=== PATIENT | male | born 1940 | race Caucasian/White ===

== ENCOUNTER 2021-12-20 20:14 | Inpatient (IN) | payer OTHER ==
[~2021-12-20] VITALS: Ht 180.3 cm; Wt 77.1 kg
[2021-12-20] MEDS ORDERED: ONDANSETRON HCL 4MG/2ML INJ IV STA (21:48)
[2021-12-20] MEDS ORDERED: MORPHINE SULFATE 4 MG/ML CPJ (NOT FOR IM USE) IV STA (21:48)
[2021-12-20] MEDS ORDERED: SODIUM CHLORIDE 0.9% 1,000 ML IV ONE (22:00)
[2021-12-20 22:47] LABS: BASOPHILS % 0.6 % (0.0-2.0); HEMOGLOBIN. 11.4 g/dL (14.0-18.0); LYMPHOCYTES % 7.6 % (20.0-50.0); MEAN CORPUSCULAR HEMOGLOBIN 31.3 pg (28.0-32.0); MEAN CORPUSCULAR VOLUME 93.3 fL (80.0-94.0); MEAN PLATELET VOLUME 7.9 fl (7.4-10.4); MONOCYTES % 4.5 % (2.0-8.0); NEUTROPHILS % 87.3 % (40.0-76.0); PLATELET 261 x1000/uL (130-400); RED BLOOD CELL COUNT 3.65 mill/uL (4.7-6.1); RED CELL DISTRIBUTION WIDTH 14.2 % (11.6-14.6)
[2021-12-20 22:56] LABS: INR 1.1; PROTHROMBIN TIME 11.6 sec (9.6-11.0)
[2021-12-20 22:57] LABS: CHLORIDE 105 mEq/L (98-107)
[2021-12-20 23:54] LABS: CLARITY URINE CLEAR (CLEAR); COLOR URINE YELLOW (YELLOW); KETONES URINE NEGATIVE (NEGATIVE); LEUKOCYTE ESTERASE URINE NEGATIVE (NEGATIVE); NITRITE URINE NEGATIVE (NEGATIVE); OCCULT BLOOD URINE NEGATIVE (NEGATIVE); PH URINE 6.5 (4.5-8.0); PROTEIN URINE TRACE (NEGATIVE)
[2021-12-21] MEDS ORDERED: MAGNESIUM/ALUMINUM HYDROXIDE/SIMETHICONE 30ML UDC PO PRN (04:30)
[2021-12-21] MEDS ORDERED: DOCUSATE SODIUM 100MG CAPSULE PO PRN (04:30)
[2021-12-21] MEDS ORDERED: CLONIDINE 0.1MG TABLET PO PRN (04:30)
[2021-12-21] MEDS ORDERED: TRAMADOL 50MG TABLET PO PRN (04:30)
[2021-12-21] MEDS ORDERED: ONDANSETRON HCL 4MG/2ML INJ IV PRN (04:30)
[2021-12-21] MEDS ORDERED: HYDROMORPHONE HCL/PF 2MG/ML CPJ IV PRN (04:30)
[2021-12-21] MEDS ORDERED: ACETAMINOPHEN 325MG TABLET PO PRN (04:30)
[2021-12-21] MEDS ORDERED: GUAIFENESIN 200MG/10ML SUGAR FREE UDC PO PRN (04:30)
[2021-12-21] MEDS ORDERED: TRANEXAMIC ACID 1,000 MG in SODIUM CHLORIDE 0.9% 100 ML IV NR ×4 (09:15)
[2021-12-21] MEDS ORDERED: VANCOMYCIN HCL 1 GM/VIAL ONE (09:38)
[2021-12-21] MEDS ORDERED: POLYMYXIN B SULFATE 500000 UNITS/VIAL ONE (09:38)
[2021-12-21] MEDS ORDERED: EPINEPHRINE 1:1000 1 MG/ML AMP ONE (09:41)
[2021-12-21] MEDS ORDERED: KETOROLAC 30MG/ML VIAL ONE (09:41)
[2021-12-21] MEDS ORDERED: ROPIVACAINE HCL 10MG/ML 20 ML VIAL EPI ONE (09:41)
[2021-12-21] MEDS: ENOXAPARIN 40MG/0.4ML SYR SUBCUT SCH (10:31)
[2021-12-21] MEDS ORDERED: NALOXONE HCL 0.4MG/ML VIAL IV PRN (10:45)
[2021-12-21] MEDS ORDERED: POTASSIUM CHLORIDE 20MEQ TABLET SR PO NR (13:00)
[2021-12-21] MEDS ORDERED: REGADENOSON 0.4 MG/5 ML IV NR (16:15)
[2021-12-21] MEDS: HYDROCODONE/APAP 7.5/325MG 1 TAB TABLET PO PRN (17:43)
[2021-12-21 19:07] VITALS: BP 111/89
[2021-12-21 20:00] VITALS: BP 114/58
[2021-12-21 22:33] LABS: TOTAL IRON BINDING CAPACITY 261 ug/dL (250-450)
[2021-12-21 22:52] LABS: FOLIC ACID (FOLATE) SERUM 15.6 ng/mL (>5.38)
[2021-12-22] VITALS: BP 103/57
[2021-12-22 04:00] VITALS: BP 102/53
[2021-12-22] MEDS: HYDROCODONE/APAP 7.5/325MG 1 TAB TABLET PO PRN (04:20)
[2021-12-22 07:42] LABS: BASOPHILS % 0.8 % (0.0-2.0); EOSINOPHILS % 1.6 % (0.0-5.0); HEMATOCRIT. 32.6 % (42.0-52.0); HEMOGLOBIN. 11.1 g/dL (14.0-18.0); LYMPHOCYTES % 7.8 % (20.0-50.0); MEAN CORPUSCULAR HEMOGLOBIN 31.5 pg (28.0-32.0); MEAN CORPUSCULAR VOLUME 92.7 fL (80.0-94.0); MEAN PLATELET VOLUME 8.8 fl (7.4-10.4); MONOCYTES % 6.5 % (2.0-8.0); NEUTROPHILS % 83.3 % (40.0-76.0); PLATELET 229 x1000/uL (130-400); RED BLOOD CELL COUNT 3.52 mill/uL (4.7-6.1); RED CELL DISTRIBUTION WIDTH 13.9 % (11.6-14.6)
[2021-12-22 07:47] LABS: CHLORIDE 106 mEq/L (98-107)
[2021-12-22 07:57] LABS: HDL CHOLESTEROL 53 mg/dL (40-59); LDL CHOLESTEROL 122 mg/dL (5-100)
[2021-12-22] MEDS: ENOXAPARIN 40MG/0.4ML SYR SUBCUT SCH (09:00)
[2021-12-22] MEDS ORDERED: ASPIRIN 81MG TABLET PO SCH (09:00)
[2021-12-22] MEDS ORDERED: CEFTRIAXONE 1 G PREMIX 50 ML IV SCH (11:00)
[2021-12-22] MEDS ORDERED: LIDOCAINE HCL/PF 2% 20MG/ML 5 ML/VIAL ONE (11:47)
[2021-12-22] MEDS ORDERED: HEPARIN 1000 UNITS/ML 10ML ONE (11:48)
[2021-12-22] MEDS ORDERED: VERAPAMIL HCL 2.5 MG/1 ML 2ML VIAL IV ONE (11:48)
[2021-12-22] MEDS ORDERED: IODIXANOL 320MG/ML 100 ML BOTTLE IV ONE (11:48)
[2021-12-22] MEDS ORDERED: DIPHENHYDRAMINE 50MG/ML VIAL ONE (11:48)
[2021-12-22] MEDS ORDERED: MIDAZOLAM HCL 2 MG/2 ML VIAL ONE (11:49)
[2021-12-22] MEDS ORDERED: FENTANYL CITRATE/PF 50MCG/ML 2ML VIAL ONE (11:49)
[2021-12-22] MEDS: CEFTRIAXONE 1,000 MG in DEXTROSE 5% WATER 50 ML IV SCH (12:00)
[2021-12-22] MEDS ORDERED: LORAZEPAM 1MG TABLET PO PRN (12:30)
[2021-12-22] MEDS ORDERED: LIDOCAINE HCL 1% 50ML VIAL (10MG/ML) ONE (13:04)
[2021-12-22] MEDS ORDERED: SODIUM CHLORIDE 0.45% 250 ML IV SCH (15:15)
[2021-12-22] MEDS ORDERED: ATROPINE SULFATE 1MG/10ML SYR IV PRN (15:15)
[2021-12-22] MEDS ORDERED: ACETAMINOPHEN 325MG TABLET PO PRN (15:15)
[2021-12-22 20:00] VITALS: BP 139/61
[2021-12-22] MEDS: ATORVASTATIN CALCIUM 40MG TABLET PO SCH (21:29)
[2021-12-23 00:53] VITALS: BP 98/78
[2021-12-23] MEDS: HYDROCODONE/APAP 7.5/325MG 1 TAB TABLET PO PRN (03:31)
[2021-12-23 04:00] VITALS: BP 101/78
[2021-12-23 06:48] LABS: BASOPHILS % 0.5 % (0.0-2.0); EOSINOPHILS % 1.6 % (0.0-5.0); HEMATOCRIT. 33.3 % (42.0-52.0); HEMOGLOBIN. 11.4 g/dL (14.0-18.0); LYMPHOCYTES % 8.6 % (20.0-50.0); MEAN CORPUSCULAR HEMOGLOBIN 31.5 pg (28.0-32.0); MEAN CORPUSCULAR VOLUME 92.2 fL (80.0-94.0); MEAN PLATELET VOLUME 8.5 fl (7.4-10.4); MONOCYTES % 8.8 % (2.0-8.0); NEUTROPHILS % 80.5 % (40.0-76.0); PLATELET 246 x1000/uL (130-400); RED BLOOD CELL COUNT 3.61 mill/uL (4.7-6.1); RED CELL DISTRIBUTION WIDTH 13.7 % (11.6-14.6)
[2021-12-23 07:28] LABS: CHLORIDE 103 mEq/L (98-107)
[2021-12-23 08:00] VITALS: BP 113/65
[2021-12-23 12:00] VITALS: BP 98/54
[2021-12-23] MEDS: CEFTRIAXONE 1,000 MG in DEXTROSE 5% WATER 50 ML IV SCH (14:27)
[2021-12-23] MEDS ORDERED: ROPIVACAINE HCL 10MG/ML 20 ML VIAL EPI ONE (15:55)
[2021-12-23] MEDS ORDERED: VANCOMYCIN HCL 1 GM/VIAL ONE (15:55)
[2021-12-23] MEDS ORDERED: POLYMYXIN B SULFATE 500000 UNITS/VIAL ONE (15:55)
[2021-12-23] MEDS ORDERED: BACITRACIN 15GM TUBE TOP ONE (15:56)
[2021-12-23] MEDS ORDERED: BUPIVACAINE HCL 0.5% (5MG/ML) 50ML ONE (15:56)
[2021-12-23] MEDS ORDERED: MORPHINE SULFATE/PF 1MG/ML 10ML AMP ONE (15:56)
[2021-12-23] MEDS ORDERED: KETOROLAC 30MG/ML VIAL ONE (15:57)
[2021-12-23] MEDS ORDERED: EPINEPHRINE 1:1000 1 MG/ML AMP ONE (15:57)
[2021-12-23 16:00] VITALS: BP 109/65
[2021-12-23] MEDS ORDERED: TRANEXAMIC ACID 1,000 MG in SODIUM CHLORIDE 0.9% 100 ML IV NR ×4 (16:00)
[2021-12-23] MEDS ORDERED: ETOMIDATE 2MG/ML 10ML VIAL IV ONE (16:47)
[2021-12-23] MEDS ORDERED: FENTANYL CITRATE/PF 50MCG/ML 2ML VIAL ONE ×2 (17:22→17:42)
[2021-12-23] MEDS ORDERED: ONDANSETRON HCL 4MG/2ML INJ ONE (17:40)
[2021-12-23] MEDS ORDERED: DEXAMETHASONE 4MG/ML 1ML VIAL ONE (17:40)
[2021-12-23] MEDS ORDERED: SUCCINYLCHOLINE CHLORIDE 200MG/10ML IV ONE (17:41)
[2021-12-23] MEDS ORDERED: CEFAZOLIN SODIUM 1000MG/VIAL ONE (17:41)
[2021-12-23] MEDS ORDERED: FENTANYL CITRATE/PF 50MCG/ML 2ML VIAL IV PRN (17:45)
[2021-12-23] MEDS ORDERED: ATROPINE SULFATE 0.4MG/ML VIAL IV PRN (17:45)
[2021-12-23] MEDS ORDERED: HYDROMORPHONE HCL/PF 2MG/ML CPJ IV PRN (17:45)
[2021-12-23] MEDS ORDERED: CEFAZOLIN 1000MG PREMIX 50 ML IV SCH (18:15)
[2021-12-23 20:30] VITALS: BP 116/61
[2021-12-23] MEDS: CEFAZOLIN 1000MG PREMIX 50 ML IV SCH (21:47)
[2021-12-23] MEDS: ATORVASTATIN CALCIUM 40MG TABLET PO SCH (21:47)
[2021-12-24] VITALS: BP 97/50
[2021-12-24 04:00] VITALS: BP 114/60
[2021-12-24 06:15] LABS: HEMATOCRIT. 33.3 % (42.0-52.0); HEMOGLOBIN. 11.3 g/dL (14.0-18.0); MEAN CORPUSCULAR HEMOGLOBIN 31.9 pg (28.0-32.0); MEAN CORPUSCULAR VOLUME 93.9 fL (80.0-94.0); MEAN PLATELET VOLUME 8.8 fl (7.4-10.4); PLATELET 251 x1000/uL (130-400); RED BLOOD CELL COUNT 3.55 mill/uL (4.7-6.1); RED CELL DISTRIBUTION WIDTH 13.5 % (11.6-14.6)
[2021-12-24 06:28] LABS: CHLORIDE 105 mEq/L (98-107)
[2021-12-24] MEDS: CEFAZOLIN 1000MG PREMIX 50 ML IV SCH ×3 (06:54→21:57)
[2021-12-24 08:00] VITALS: BP 135/63
[2021-12-24 10:59] LABS: PLATELET ESTIMATE NORMAL
[2021-12-24 12:00] VITALS: BP 118/58
[2021-12-24] MEDS: CEFTRIAXONE 1,000 MG in DEXTROSE 5% WATER 50 ML IV SCH (13:35)
[2021-12-24 16:00] VITALS: BP 104/52
[2021-12-24] MEDS: HALOPERIDOL LACTATE 5MG/ML VIAL IM PRN (16:31)
[2021-12-24 20:00] VITALS: BP 122/47
[2021-12-24] MEDS: ATORVASTATIN CALCIUM 40MG TABLET PO SCH (21:57)
[2021-12-25] VITALS: BP 115/55
[2021-12-25 04:00] VITALS: BP 124/77
[2021-12-25] MEDS: CEFAZOLIN 1000MG PREMIX 50 ML IV SCH ×2 (05:18→14:45)
[2021-12-25 08:00] VITALS: BP_SYST 106; BP_SYST 113; BP_DIAS 49; BP_DIAS 58
[2021-12-25] MEDS: CEFTRIAXONE 1,000 MG in DEXTROSE 5% WATER 50 ML IV SCH (12:28)
[2021-12-25 12:55] LABS: BASOPHILS % 0.5 % (0.0-2.0); HEMATOCRIT. 32.5 % (42.0-52.0); HEMOGLOBIN. 10.8 g/dL (14.0-18.0); LYMPHOCYTES % 9.2 % (20.0-50.0); MEAN CORPUSCULAR HEMOGLOBIN 31.5 pg (28.0-32.0); MEAN CORPUSCULAR VOLUME 94.8 fL (80.0-94.0); MONOCYTES % 11.3 % (2.0-8.0); PLATELET 272 x1000/uL (130-400); RED BLOOD CELL COUNT 3.43 mill/uL (4.7-6.1); RED CELL DISTRIBUTION WIDTH 13.6 % (11.6-14.6)
[2021-12-25 16:00] VITALS: BP 109/60
[2021-12-25 17:21] VITALS: BP 109/60
[2021-12-25] MEDS: HALOPERIDOL LACTATE 5MG/ML VIAL IM PRN (18:27)
[2021-12-25 20:00] VITALS: BP 114/74
== END 2021-12-25 20:52 | DRG 521 ==
LOC: ER 20:14 → MICUSO 22:36 → EDBEDREQ 12-21 13:43 → 6EST 12-21 18:20
PROVIDERS: ADMIT Internal Medicine; ATTEND Internal Medicine
PROC: B41F1ZZ Fluoroscopy of Right Lower Extremity Arteries using Low Osmolar Contrast (ICD-10-PCS; principal; 2021-12-22)
PROC: 4A023N7 Measurement of Cardiac Sampling and Pressure, Left Heart, Percutaneous Approach (ICD-10-PCS; 2021-12-22)
PROC: B211YZZ Fluoroscopy of Multiple Coronary Arteries using Other Contrast (ICD-10-PCS; 2021-12-22)
PROC: B218YZZ Fluoroscopy of Left Internal Mammary Bypass Graft using Other Contrast (ICD-10-PCS; 2021-12-22)
PROC: 0SRS0JZ Replacement of Left Hip Joint, Femoral Surface with Synthetic Substitute, Open Approach (ICD-10-PCS; 2021-12-23)
DX: S72.002A Fracture of unspecified part of neck of left femur, initial encounter for closed fracture (principal); I21.4 Non-ST elevation (NSTEMI) myocardial infarction; E44.1 Mild protein-calorie malnutrition; D64.9 Anemia, unspecified; F03.90 Unspecified dementia, unspecified severity, without behavioral disturbance, psychotic disturbance, mood disturbance, and anxiety; I25.10 Atherosclerotic heart disease of native coronary artery without angina pectoris; I45.10 Unspecified right bundle-branch block; E87.6 Hypokalemia; I10 Essential (primary) hypertension; E78.5 Hyperlipidemia, unspecified; R73.9 Hyperglycemia, unspecified; D72.829 Elevated white blood cell count, unspecified; L40.9 Psoriasis, unspecified; Z68.23 Body mass index [BMI] 23.0-23.9, adult; Z95.1 Presence of aortocoronary bypass graft; Z20.822 Contact with and (suspected) exposure to COVID-19; W01.0XXA Fall on same level from slipping, tripping and stumbling without subsequent striking against object, initial encounter; Y93.01 Activity, walking, marching and hiking; Y92.009 Unspecified place in unspecified non-institutional (private) residence as the place of occurrence of the external cause; Y99.8 Other external cause status
CPT/HCPCS: 36415; 71045; 72170; 73502; 80048; 80053; 80061; 81003; 82607; 82728; 82746; 83036; 83540; 83550; 84145; 84484; 85025; 86850; 86900; 87426; 88305; 88311; 93005; 93306; 93459; 93970; 97110; 97162; 97166; 97530; 99285; C1760; C1769; C1776; C1887; C1893; J0330; J0690; J0696; J1100; J1200; J1630; J1644; J1650; J1885; J2250; J2270; J2274; J2405; J2795; J3010; J3370; J3490; J7030; J7050; J7060; Q9967

== ENCOUNTER 2022-01-10 08:28 | Inpatient (IN) | payer OTHER ==
[~2022-01-10] VITALS: Ht 170.2 cm; Wt 68.0 kg
[2022-01-10] MEDS ORDERED: SODIUM CHLORIDE 0.9% 1,000 ML IV ONE (08:45)
[2022-01-10 10:09] LABS: CHLORIDE 104 mEq/L (98-107); HEMATOCRIT. 38.3 % (42.0-52.0); HEMOGLOBIN. 12.6 g/dL (14.0-18.0); MEAN CORPUSCULAR VOLUME 94.2 fL (80.0-94.0); MEAN PLATELET VOLUME 7.8 fl (7.4-10.4); PLATELET 491 x1000/uL (130-400); RED BLOOD CELL COUNT 4.07 mill/uL (4.7-6.1); RED CELL DISTRIBUTION WIDTH 13.7 % (11.6-14.6)
[2022-01-10 10:37] LABS: PLATELET ESTIMATE INCREASED
[2022-01-10] MEDS ORDERED: CEFTRIAXONE 1 G PREMIX 50 ML IV ONE (15:00)
[2022-01-10 20:00] VITALS: BP 118/67
[2022-01-10] MEDS: SODIUM CHLORIDE 0.9% 1,000 ML IV SCH (20:15)
[2022-01-10] MEDS ORDERED: ACETAMINOPHEN 325MG TABLET PO PRN (20:15)
[2022-01-10 21:19] LABS: CHLORIDE 106 mEq/L (98-107)
[2022-01-10 21:28] LABS: BASOPHILS % 0.4 % (0.0-2.0); EOSINOPHILS % 0.1 % (0.0-5.0); HEMATOCRIT. 34.5 % (42.0-52.0); HEMOGLOBIN. 11.4 g/dL (14.0-18.0); LYMPHOCYTES % 10.1 % (20.0-50.0); MEAN CORPUSCULAR HEMOGLOBIN 30.8 pg (28.0-32.0); MEAN CORPUSCULAR VOLUME 92.9 fL (80.0-94.0); MEAN PLATELET VOLUME 7.8 fl (7.4-10.4); MONOCYTES % 7.3 % (2.0-8.0); NEUTROPHILS % 82.1 % (40.0-76.0); PLATELET 432 x1000/uL (130-400); RED BLOOD CELL COUNT 3.71 mill/uL (4.7-6.1); RED CELL DISTRIBUTION WIDTH 13.6 % (11.6-14.6)
[2022-01-11] VITALS (7 sets, daily range): BP systolic 102–120; BP diastolic 49–82
[2022-01-11] MEDS: HEPARIN 5000 UNITS/ML VIAL SUBCUT SCH ×2 (08:50→20:43)
[2022-01-11 15:53] LABS: CLARITY URINE CLEAR (CLEAR); COLOR URINE YELLOW (YELLOW); KETONES URINE TRACE (NEGATIVE); LEUKOCYTE ESTERASE URINE NEGATIVE (NEGATIVE); NITRITE URINE NEGATIVE (NEGATIVE); OCCULT BLOOD URINE NEGATIVE (NEGATIVE); PROTEIN URINE TRACE (NEGATIVE); SPECIFIC GRAVITY URINE 1.024 (1.005-1.030)
[2022-01-11 17:34] LABS: BASOPHILS % 0.4 % (0.0-2.0); EOSINOPHILS % 0.2 % (0.0-5.0); HEMATOCRIT. 33.5 % (42.0-52.0); HEMOGLOBIN. 11.3 g/dL (14.0-18.0); MEAN CORPUSCULAR HEMOGLOBIN 31.4 pg (28.0-32.0); MEAN CORPUSCULAR VOLUME 93.3 fL (80.0-94.0); MONOCYTES % 8.3 % (2.0-8.0); NEUTROPHILS % 77.1 % (40.0-76.0); PLATELET 385 x1000/uL (130-400); RED BLOOD CELL COUNT 3.59 mill/uL (4.7-6.1); RED CELL DISTRIBUTION WIDTH 13.8 % (11.6-14.6)
[2022-01-11] MEDS: SODIUM CHLORIDE 0.9% 1,000 ML IV SCH ×2 (17:41→20:42)
[2022-01-11 17:43] LABS: CHLORIDE 110 mEq/L (98-107)
[2022-01-11] MEDS: CEFTRIAXONE 1,000 MG in DEXTROSE 5% WATER 50 ML IV SCH (17:43)
[2022-01-12] VITALS: BP 117/56
[2022-01-12 04:00] VITALS: BP 94/62
[2022-01-12 08:00] VITALS: BP 118/62
[2022-01-12] MEDS: HEPARIN 5000 UNITS/ML VIAL SUBCUT SCH (08:06)
[2022-01-12] MEDS: SODIUM CHLORIDE 0.9% 1,000 ML IV SCH (11:31)
[2022-01-12 12:00] VITALS: BP 105/64
[2022-01-12 12:42] VITALS: BP 20/105
[2022-01-12 16:00] VITALS: BP 124/76
[2022-01-12] MEDS: CEFTRIAXONE 1,000 MG in DEXTROSE 5% WATER 50 ML IV SCH (16:55)
== END 2022-01-12 18:50 | DRG 689 ==
LOC: ER 08:41 → EDBEDREQ 08:43 → 7WST 12:47 → EDBEDREQ 12:53 → EDBEDREQTM 12:53 → ENRESERV 16:37
PROVIDERS: ADMIT Internal Medicine; ATTEND Internal Medicine
DX: N39.0 Urinary tract infection, site not specified (principal); G93.41 Metabolic encephalopathy; I10 Essential (primary) hypertension; Z20.822 Contact with and (suspected) exposure to COVID-19; I25.10 Atherosclerotic heart disease of native coronary artery without angina pectoris; F03.90 Unspecified dementia, unspecified severity, without behavioral disturbance, psychotic disturbance, mood disturbance, and anxiety; D72.829 Elevated white blood cell count, unspecified; X58.XXXD Exposure to other specified factors, subsequent encounter; S72.90 Unspecified fracture of unspecified femur; I25.2 Old myocardial infarction; Z95.1 Presence of aortocoronary bypass graft
CPT/HCPCS: 36415; 71045; 80048; 80053; 81003; 82962; 84145; 84484; 85025; 87426; 93005; 99285; C9803; J0696; J1644; J7030; J7060